=== PATIENT | male | born 1995 | race African-American/Black ===

== ENCOUNTER 2016-03-03 08:03 | Emergency (ER) | payer OTHER ==
[~2016-03-03] VITALS: Ht 182.9 cm; Wt 69.0 kg
[~2016-03-03 08:03] MED LIST: NORCO 5/3251 TABLET PO
[2016-03-03] MEDS ORDERED: NAPROSYN500 MG PO (09:17)
[2016-03-03] MEDS ORDERED: TRAMADOL HCL50 MG PO (09:17)
[2016-03-03] MEDS ORDERED: PEN-VEE K,VEET500 MG PO (09:17)
[2016-03-03 09:36] VITALS: BP 125/72
== END 2016-03-03 09:37 | disposition home or self-care (01) ==
LOC: EME 08:03
DX: S02.5XXA Fracture of tooth (traumatic), initial encounter for closed fracture (principal); K04.7 Periapical abscess without sinus
CPT/HCPCS: 99281; 99284